=== PATIENT | male | born 1960 | race Caucasian/White ===

== ENCOUNTER 2016-10-24 15:05 | Emergency (ER) | payer BC ==
[2016-10-24 15:22] VITALS: BP 157/78
--- NOTE | 2016-10-24 15:40 | EDM.PDOC ---
ED HPI GENERAL MEDICAL PROBLEM - General Chief Complaint: Upper Extremity Injury/Pain Stated Complaint: R RING FINGER LACERATION Time Seen by Provider: 10/24/16 15:29 Source of Information: Reports: Patient History Limitations: Reports: No Limitations - History of Present Illness INITIAL COMMENTS - FREE TEXT/NARRATIVE: Patient presents with injury to tip of right ring finger about an hour ago. He was pulling on a belt on his combine to try to unplug it. When it came free it pulled his finger through the belt and wallace from the momentum of his pulling; the machine was powdered off and wasn't running at the time. He says his last tetanus update was three years ago. He denies diabetes or any other medical problem. Right 4-Ring finger Pain Score (Numeric/FACES): 5 - Related Data Allergies Allergy/AdvReac Type Severity Reaction Status Date / Time cephalexin [From Keflex] Allergy Other Verified 10/24/16 15:24 Penicillins Allergy Rash Verified 10/24/16 15:24 Home Meds: Home Meds . [No Known Home Meds] 10/24/16 [History] Review of Systems - Review of Systems Review Of Systems: See Below Constitutional: Denies: Fever, Weakness Eyes: Denies: Blurred Vision, Vision Change Ears: Denies: Dizziness Nose: Denies: Epistaxis Mouth/Throat: Reports: No Symptoms Respiratory: Denies: Shortness of Breath, Cough Cardiovascular: Denies: Chest Pain, Syncope GI/Abdominal: Denies: Abdominal Pain, Vomiting Genitourinary: Reports: No Symptoms Musculoskeletal: Denies: Neck Pain, Shoulder Pain, Arm Pain, Back Pain Skin: Denies: Cyanosis, Jaundice, Mottled, Pallor, Diaphoresis Neurological: Denies: Confusion, Dizziness, Headache, Syncope, Trouble Speaking , Difficulty Walking ED EXAM, GENERAL - Physical Exam Exam: See Below Exam Limited By: No Limitations General Appearance: Alert, WD/WN, No Apparent Distress Eye Exam: Bilateral Eye: EOMI, Normal Inspection, PERRL Ears: Normal External Exam, Hearing Grossly Normal Nose: Normal Inspection, No Blood Throat/Mouth: Normal Inspection, Normal Lips, Normal Voice, No Airway Compromise Head: Atraumatic, Normocephalic Neck: Supple, Non-Tender, Full Range of Motion Respiratory/Chest: No Respiratory Distress, Lungs Clear, Normal Breath Sounds Cardiovascular: Regular Rate, Rhythm, No Murmur GI/Abdominal: No Distention Extremities: Normal Range of Motion, Normal Capillary Refill, Other (The distal right ring finger has a half-circumferential laceration dorsally which is essentially a partial avulsion. The distal tip has sensation and is pink in color so I feel is very viable. The laceration is deep and open to the distal phalanx which has a displaced tuft fracture. ROM of all IP joints is normal without injury. No other injuries on extremities.) Neurological: Alert, Oriented, Normal Cognition, No Motor/Sensory Deficits Psychiatric: Normal Affect, Normal Mood Skin Exam: Warm, Dry, Normal Color, No Rash ED TRAUMA EXTREMITY PROCEDURES - Laceration/Wound Repair Right Dorsal Finger Lac/Wound Length In cm: 3.5 Appearance: Subcutaneous (open down to the tuft fracture of distal phalanx; it completely transected the distal 3 mm of nail which I removed after the initial soak.), Mildly Contaminated Distal NVT: Neuro & Vascular Intact, No Tendon Injury Anesthetic Type: Digital Local Anesthesia - Lidocaine (Xylocaine): 1% Plain Local Anesthetic Volume: 5cc Skin Prep: Providone-Iodine (Betadine) (15 minute soak) Saline Irrigation (cc's): 350 Exploration/Debridement/Repair: Explored to Base Closed With: Sutures Suture Size: other (5-0) # of Sutures: 8 (two of these were placed through the distal intact nail to secure the partially avulsed finger tip securely) Suture Type: Nylon, Interrupted, Simple Sterile Dressing Applied: Provider Tetanus Status Addressed: Yes Complications: No Course - Vital Signs Last Recorded V/S: Last Vital Signs Temp 98.2 F 10/24/16 15:17 Pulse 84 10/24/16 15:17 Resp 18 10/24/16 15:17 BP 157/78 H 10/24/16 15:17 Pulse Ox 98 10/24/16 15:17 - Orders/Labs/Meds Orders: Active Orders 24 hr Category Date Time Status Hand 2V Rt [CR] Stat Exams 10/24/16 15:24 Ordered - Re-Assessments/Exams Free Text/Narrative Re-Assessment/Exam: 10/24/16 17:02 Xrays show a moderately displaced tuft fracture of right ring finger. This was treated as described in procedures. Discussed findings and treatment plan with patient and his . Pt discharged in stable condition. Departure - Departure Time of Disposition: 16:54 Disposition: Home, Self-Care 01 Condition: Good Clinical Impression: Open fracture of distal phalanx of digit of right hand Laceration of finger of right hand with damage to nail Qualifiers: Encounter type: initial encounter Finger: ring finger Foreign body presence: without foreign body Qualified Code(s): S61.314A - Laceration without foreign body of right ring finger with damage to nail, initial encounter - Discharge Information Referrals: Alfreda Ramos MD [Primary Care Provider] - Additional Instructions: 1. Keep wound clean and dry and keep dressing on for 48 hours unless it gets wet. 2. May shower but avoid putting hand in sink or tub until sutures are removed. 3. Take the antibiotic as directed. 4. Take Ibuprofen 400-600 mg and/or Tylenol 500 mg three times a day as needed for pain control. 5. Follow up with your PCP in ten days for suture removal. 6. If any redness, pus or fever or other sign of infection recheck JANNA. - My Orders Last 24 Hours: My Active Orders 10/24/16 15:24 Hand 2V Rt [CR] Stat - Assessment/Plan Last 24 Hours: My Active Orders 10/24/16 15:24 Hand 2V Rt [CR] Stat
[2016-10-24] MEDS ORDERED: Bacitracin/Neomycin/Polymyxin B Oint 0.9 GM U/D Packet ONE (16:41)
== END 2016-10-24 17:07 | disposition home or self-care (01) ==
LOC: KA.ED 15:05
DX: S62.634B Displaced fracture of distal phalanx of right ring finger, initial encounter for open fracture (principal); Z88.1 Allergy status to other antibiotic agents; Z88.0 Allergy status to penicillin; W31.9XXA Contact with unspecified machinery, initial encounter
CPT/HCPCS: 12002; 73120-RT; 99283